=== PATIENT | female | born 1955 | race African-American/Black ===

== ENCOUNTER 2017-01-06 19:25 | Emergency (ER) | payer BC ==
[2017-01-06 19:36] VITALS: TEMP 98; BMI 73.7
[2017-01-06] MEDS ORDERED: MAG HYDROX/AL HYDROX/SIMETH 30 ML UNIT-DOSE CUP PO ONE (20:35)
--- NOTE | 2017-01-06 20:35 | PDOC ---
History of Present Illness - General History Source: Patient Exam Limitations: No Limitations <José Barrios - Last Filed: 01/06/17 20:57> - General History Source: Patient Exam Limitations: No Limitations <NavaToryjenniferEdilia Nely - Last Filed: 01/06/17 22:38> - General Chief Complaint: Irregular Heart Beat Stated Complaint: "IM HAVING PALPITATIONS" Time Seen by Provider: 01/06/17 19:53 - History of Present Illness Initial Comments: 01/06/17 20:57 The patient is a 61 year old female, with a significant past medical history of GERD, afib, hiatal hernia, hypothyroidism, HTN, and seizures, who presents to the emergency department with palpitations, dizziness, mild nausea, and headache throughout the day. She reports having slight chest pain with her palpitations. She reports taking flecainide (3 pills) during her afib episode with good alleviation of her pain. She denies recent fevers, chills. She denies recent vomit, diarrhea or constipation. She denies recent dysuria, frequency, urgency or hematuria. She denies recent shortness of breath. PAST MEDICAL HISTORY: GERD, afib, hiatal hernia, hypothyroidism, HTN, and seizures. PAST SURGICAL HISTORY: No significant history. FAMILY HISTORY: No pertinent history. SOCIAL HISTORY: Patient lives with family and is employed. MEDICATIONS: Reviewed. ALLERGIES: As per nursing notes. ROS General: No fevers or chills, no weakness, no weight loss HEENT: No change in vision. No sore throat. No ear pain CardioVascular: +palpitations and chest pain. No shortness of breath Respiratory:No cough, or wheezing. Gastrointestinal: +nausea. No vomiting, diarrhea or constipation. No rectal bleeding Genitourinary: No dysuria, hematuria, or frequency Musculoskeletal: No joint or muscle pain or swelling Neurologic: +dizziness and headache. No vertigo or loss of consciousness Psychiatric: No depression Skin: No rashes or easy bruising Endocrine: no increased thirst or abnormal weight change Allergic: no skin or latex allergy All other systems reviewed and normal Exam: General: Well-nourished well-developed individual, no acute distress HEENT: Throat: Normal, tonsils normal, no erythema or exudate Neck: Supple, no meningeal signs, no lymphadenopathy Eyes: Pupils equal reactive and round, extraocular motion intact Chest: Nontender to palpation Cardiac: Irregularly irregular rate and rhythm, no murmurs rubs or gallops Respiratory: Lungs clear to auscultation bilateral Abdomen: Soft, nondistended, normal bowel sounds, nontender to palpation diffusely Extremities: Warm, dry, no cyanosis, clubbing, or edema Skin: No rashes Neuro: Alert and oriented x3, nonfocal exam, grossly intact, normal gait Psych: Normal mood and affect (José Barrios) 01/06/17 22:20 This is a 61-year-old female with history of paroxysmal atrial fibrillation. Patient developed palpitations approximately 1 PM today. Patient said it felt like her heart was going much faster at the time she developed the palpitations and she did have some mild chest tightness. Patient took 3 of her flecainide and the heart rate improved but continued to still feel irregular to her. Patient said that the chest tightness disappeared with the decrease in heart rate. Here in the emergency room patient's EKG showed atrial fibrillation at a rate of 80 with some nonspecific changes but no acute ST-T wave changes. Patient's troponin was negative. Patient has heart score 3. Patient's chest x-ray shows no acute pathology Patient has a physician obstetrician she will see in the morning. Patient discharged will follow-up with her physician obstetrician in the morning. 01/06/17 22:37 A portion of this note was documented by scribe services under my direction. I have reviewed the details of the note, within reason, and agree with the documentation. The case summary and management plan written by me. (Edilia Reyes I) Past History <José Barrios - Last Filed: 01/06/17 20:57> - Past Medical History Cardiac Disorders: Yes (A-FIB) GI Disorders: Yes (HIATAL HERNIA, GERD) Seizures: Yes - Psycho/Social/Smoking Cessation Hx Anxiety: No Suicidal Ideation: No Smoking History: Never smoked Have you smoked in the past 12 months: No Number of Cigarettes Smoked Daily: 0 Information on smoking cessation initiated: No Hx Alcohol Use: No Drug/Substance Use Hx: No Substance Use Type: None <Edilia Reyes I - Last Filed: 01/06/17 22:38> - Past Medical History Allergies/Adverse Reactions: Allergies Allergy/AdvReac Type Severity Reaction Status Date / Time Iodinated Contrast Media - Allergy Unknown Verified 12/31/15 20:19 Oral and Penicillins Allergy Unknown Verified 12/31/15 20:19 Home Medications: Ambulatory Orders Esomeprazole Mag Trihydrate [Nexium] 40 mg PO DAILY 12/31/15 Estrogens,Conjugated [Premarin] 0.3 mg PO DAILY 12/31/15 Flecainide Acetate 50 mg PO DAILY 12/31/15 Levothyroxine Sodium [Unithroid] 125 mcg PO DAILY 12/31/15 Phenobarb/Hyoscy/Atropine/Scop [ Tablet] 16.2 mg PO TID #20 tablet 12/31 - Vital Signs Last Vital Signs Temp Pulse Resp BP Pulse Ox 98 F 65 14 155/90 98 01/06/17 19:29 01/06/17 21:21 01/06/17 19:29 01/06/17 19:29 01/06/17 21:21 Heart Score/ECG Review - History History: Slightly suspicious - Electrocardiogram EKG: Non specific repolarization disturbance - Age Age: 45-65 - Risk Factors Based on the list above the patient has:: 1-2 risk factors - Troponin Troponin: </= normal limit - Score Heart Score - Total: 3 <Edilia Reyes I - Last Filed: 01/06/17 22:38> ED Treatment Course - LABORATORY CBC & Chemistry Diagram: 01/06/17 21:21 01/06/17 21:21 <Edilia Reeys I - Last Filed: 01/06/17 22:38> - ADDITIONAL ORDERS Additional order review: Laboratory Results 01/06/17 01/06/17 21:21 21:21 Sodium 140 Potassium 4.1 Chloride 106 Carbon Dioxide 28 Anion Gap 6 L BUN 16 Creatinine 0.7 D Creat Clearance w eGFR > 60 Random Glucose 86 Calcium 9.9 Total Bilirubin 0.1 L D AST 21 ALT 17 Alkaline Phosphatase 113 H Creatine Kinase 101 Troponin I < 0.03 L Total Protein 6.5 Albumin 3.6 01/06/17 21:21 RBC 4.82 MCV 89.5 MCHC 33.4 RDW 11.8 MPV 9.7 Neutrophils % 65.0 Lymphocytes % 25.6 Monocytes % 6.9 Eosinophils % 1.8 Basophils % 0.7 - RADIOLOGY Radiology Studies Ordered: Category Date Time Status CHEST X-RAY PORTABLE* [RAD] Stat Radiology 01/06/17 20:51 Completed - Medications Given in the ED: ED Medications Discontinued Medications Generic Name Dose Route Start Last Admin Trade Name Mark PRN Reason Stop Dose Admin Al Hydroxide/Mg Hydroxide 30 ml 01/06/17 20:35 01/06/17 20:56 Mylanta Oral Suspension - PO 01/06/17 20:36 30 ml ONCE ONE Administration Hyoscyamine Sulfate 0.125 mg 01/06/17 20:36 01/06/17 20:56 Levsin Odt - PO 01/06/17 20:37 0.125 mg ONCE ONE Administration *DC/Admit/Observation/Transfer <José Barrios - Last Filed: 01/06/17 20:57> - Discharge Dispostion Admit: No <Edilia Reyes I - Last Filed: 01/06/17 22:38> Diagnosis at time of Disposition: Paroxysmal a-fib - Discharge Dispostion Disposition: HOME Condition at time of disposition: Good - Patient Instructions Printed Discharge Instructions: DI for Arrhythmias Additional Instructions: It is very important that you call your physician obstetrician in the morning and follow- up with your physician obstetrician if you're still having palpitations. Return to the emergency department immediately with ANY new, persistent or worsening symptoms. Continue any medications as previously prescribed by your physician. You should follow up with your primary doctor as soon as possible regarding today's emergency department visit. . Please make sure your doctor reviews the results of your emergency evaluation. Thank you for coming to the Emergency Department today for your care. It was a pleasure to see you today. Please note that your evaluation is INCOMPLETE until you follow-up with your doctor. - Attestations Scribe Attestion: 01/06/17 20:38 Documentation prepared by José Barrios, acting as medical office technology instructor for Edilia Reyes MD. (José Barrios)
[2017-01-06] MEDS ORDERED: HYOSCYAMINE SULFATE 0.125 MG *ODT PO ONE (20:36)
[2017-01-06] MEDS ORDERED: HYOSCYAMINE SULFATE 0.125 MG *ODT ONE (20:53)
[2017-01-06] MEDS ORDERED: MAG HYDROX/AL HYDROX/SIMETH 30 ML UNIT-DOSE CUP ONE (20:54)
[2017-01-06 21:45] LABS: BASOPHIL 0.7 % (0-2.0); EOSINOPHIL 1.8 % (0-4.5); MCH 29.9 pg (25.7-33.7); MCHC 33.4 g/dl (32.0-36.0); MEAN CELL VOLUME 89.5 fl (80-96); MEAN PLT VOLUME 9.7 fl (7.5-11.1); PLATELET COUNT 200 K/MM3 (134-434); RDW 11.8 % (11.6-15.6); WHITE BLOOD COUNT 4.6 K/mm3 (4.0-10.0)
[2017-01-06 21:59] LABS: ALBUMIN 3.6 g/dl (3.5-5.0); ALK PHOS 113 U/L (32-92); ANION GAP 6 (8-16); BILIRUBIN,TOTAL 0.1 mg/dl (0.2-1.0); CALCIUM 9.9 mg/dl (8.4-10.2); CO2 28 mmol/L (22-28); CREATININE 0.7 mg/dl (0.6-1.3); GLUCOSE,RANDOM 86 mg/dl (74-106); SGOT/AST 21 U/L (10-42); SGPT/ALT 17 U/L (10-40); TOT PROT 6.5 g/dl (6.4-8.3)
[2017-01-06 22:02] LABS: CPK(DFH) 101 IU/L (26-140)
[2017-01-06 22:19] LABS: TROPONIN I (DFP) < 0.03 ng/ml (0.03-0.50)
[2017-01-06 22:43] VITALS: BP 142/98; PULSE 69
--- NOTE | 2017-01-07 10:10 | EKG ---
Test Reason : Blood Pressure : / mmHG Vent. Rate : 080 BPM Atrial Rate : 044 BPM P-R Int : 000 ms QRS Dur : 086 ms QT Int : 376 ms P-R-T Axes : 000 061 062 degrees QTc Int : 433 ms POOR DATA QUALITY, INTERPRETATION MAY BE ADVERSELY AFFECTED ATRIAL FIBRILLATION ABNORMAL ECG WHEN COMPARED WITH ECG OF 13-OCT-2007 08:09, ATRIAL FIBRILLATION HAS REPLACED SINUS RHYTHM VENT. RATE HAS INCREASED BY 27 BPM Confirmed by DANIELA DAVIDSON MD ([id number]) on 01/07/2017 10:10:34 AM Referred By: Lucio LEI Confirmed By:DANIELA DAVIDSON MD
== END 2017-01-06 22:43 | disposition home or self-care (01) ==
LOC: FER 19:25
DX: I48.0 Paroxysmal atrial fibrillation (principal); K21.9 Gastro-esophageal reflux disease without esophagitis; E03.9 Hypothyroidism, unspecified; I10 Essential (primary) hypertension
CPT/HCPCS: 36415; 71010-TC; 80053; 82550; 84484; 85025; 93005; 99284-25

== ENCOUNTER 2019-03-12 21:35 | Emergency (ER) | payer BC, OTHER ==
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
[2019-03-12 21:59] VITALS: BP 150/90; PULSE 70; TEMP 97.9; BMI 36.5
[2019-03-12] MEDS ORDERED: LORATADINE 10 MG TABLET PO ONE (22:07)
[2019-03-12] MEDS ORDERED: ACETAMINOPHEN 325 MG TABLET (FP) PO ONE (22:07)
[2019-03-12] MEDS ORDERED: METHOCARBAMOL 500 MG TABLET PO ONE (22:07)
[2019-03-12] MEDS ORDERED: METHOCARBAMOL 500 MG TABLET ONE (22:16)
[2019-03-12] MEDS ORDERED: ACETAMINOPHEN 325 MG TABLET (FP) ONE (22:16)
[2019-03-12] MEDS ORDERED: LORATADINE 10 MG TABLET ONE (22:16)
[2019-03-12 22:35] LABS: BASO % 0.8 % (0-2.0); EOS % 3.2 % (0-4.5); HEMATOCRIT 40.7 % (32.4-45.2); LYMPH % 19.5 % (8-40); MCH 31.1 pg (25.7-33.7); MCHC 34.4 g/dl (32.0-36.0); MEAN CELL VOLUME 90.5 fl (80-96); MEAN PLT VOLUME 8.8 fl (7.5-11.1); MONO % 13.5 % (3.8-10.2); PLATELET COUNT 217 K/MM3 (134-434); RBC 4.49 M/mm3 (3.60-5.2); RDW 12.4 % (11.6-15.6); WHITE BLOOD COUNT 5.1 K/mm3 (4.0-10.0)
[2019-03-12 23:21] LABS: ALBUMIN 3.3 g/dl (3.4-5.0); ALK PHOS 143 U/L (45-117); ANION GAP 4 MMOL/L (8-16); BILIRUBIN,TOTAL 0.3 mg/dL (0.2-1); BLOOD UREA NITROGEN 17 mg/dL (7-18); CALCIUM 9.3 mg/dL (8.5-10.1); CHLORIDE 110 mmol/L (98-107); CO2 28 mmol/L (21-32); CREATININE 0.9 mg/dL (0.55-1.3); POTASSIUM 5.1 mmol/L (3.5-5.1); SGOT/AST 19 U/L (15-37); SGPT/ALT 16 U/L (13-61); SODIUM 142 mmol/L (136-145)
[2019-03-12 23:24] LABS: GLUCOSE,RANDOM 429 mg/dL (74-106)
[2019-03-12] MEDS ORDERED: metFORMIN HCL 500 MG TABLET (FP) PO ONE (23:28)
[2019-03-12] MEDS ORDERED: metFORMIN HCL 500 MG TABLET (FP) ONE (23:36)
[2019-03-12 23:45] LABS: EPI CELLS 2.1 /HPF (0-5/HPF); URINE APPEARANCE CLEAR; URINE BACTERIA 52.8 /hpf (NEGATIVE); URINE BILIRUBIN NEGATIVE (NEGATIVE); URINE CASTS 1 /lpf (0-8); URINE COLOR YELLOW; URINE GLUCOSE (UA) NEGATIVE (NEGATIVE); URINE KETONE NEGATIVE (NEGATIVE); URINE LEUK ESTERASE TRACE (NEGATIVE); URINE NITRITE NEGATIVE (NEGATIVE); URINE PROTEIN NEGATIVE (NEGATIVE); URINE RBC 3 /hpf (0-4); URINE UROBILINOGEN 0.2 mg/dL (0.2-1.0); URINE WBC 1 /hpf (0-5)
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
== END 2019-03-13 00:25 | disposition home or self-care (01) ==
LOC: JER 21:35
DX: R51 Headache (principal); M54.2 Cervicalgia; R07.81 Pleurodynia; R73.9 Hyperglycemia, unspecified; V43.51XA Car driver injured in collision with sport utility vehicle in traffic accident, initial encounter; Y92.414 Local residential or business street as the place of occurrence of the external cause; Y93.89 Activity, other specified; Y99.8 Other external cause status; I10 Essential (primary) hypertension; I48.91 Unspecified atrial fibrillation; K21.9 Gastro-esophageal reflux disease without esophagitis; G40.909 Epilepsy, unspecified, not intractable, without status epilepticus; E03.9 Hypothyroidism, unspecified
CPT/HCPCS: 36415; 70450-TC; 71250-TC; 72125-TC; 80053; 81003; 82009; 82962; 84484; 85025; 99281-25